=== PATIENT | male | born 1975 | race Caucasian/White ===

== ENCOUNTER 2016-06-25 15:24 | Emergency (ER) | payer OTHER ==
[2016-06-25] MEDS ORDERED: VICODIN 5-3001 EACH (15:30)
[2016-06-25] MEDS ORDERED: FLOMAX0.4 M1 (15:30)
== END 2016-06-25 16:58 ==
LOC: SED 15:24
DX: N23 Unspecified renal colic (principal); F43.10 Post-traumatic stress disorder, unspecified; F17.200 Nicotine dependence, unspecified, uncomplicated
CPT/HCPCS: 36415; 74176; 76870; 80053; 81003; 85025; 93976; 96374; 96375; 99284; 99285; J1170; J1885; J2405; J2550; J3010; J3360